=== PATIENT | female | born 1950 ===

== ENCOUNTER 2017-10-13 02:22 | Outpatient (CLI) | payer MEDICARE | END 2017-10-13 23:59 | disposition home or self-care (01) | LOC: DIABETIC 02:22 | PROVIDERS: ATTEND Internal Medicine | DX: E11.9 Type 2 diabetes mellitus without complications (principal); Z79.4 Long term (current) use of insulin | CPT/HCPCS: G0108 ==

== ENCOUNTER 2018-01-15 03:36 | Outpatient (CLI) | payer MEDICARE | END 2018-01-15 23:59 | disposition home or self-care (01) | LOC: DIABETIC 03:36 | PROVIDERS: ATTEND Internal Medicine | DX: E11.9 Type 2 diabetes mellitus without complications (principal); Z79.4 Long term (current) use of insulin | CPT/HCPCS: G0108 ==

== ENCOUNTER 2018-07-30 04:01 | Outpatient (CLI) | payer MEDICARE | END 2018-07-30 23:59 | disposition home or self-care (01) | LOC: DIABETIC 04:01 | PROVIDERS: ATTEND Internal Medicine | DX: E11.9 Type 2 diabetes mellitus without complications (principal); Z79.4 Long term (current) use of insulin; Z79.82 Long term (current) use of aspirin; Z79.84 Long term (current) use of oral hypoglycemic drugs | CPT/HCPCS: G0108 ==